=== PATIENT | male | born 1970 | race Caucasian/White ===

== ENCOUNTER 2023-09-17 10:11 | Emergency (ER) | payer BC, SELFPAY ==
[2023-09-17 10:16] VITALS: BP 150/90
[2023-09-17 11:00] LABS: % Basophils 0.7 % (0-2); % Eosinophils 2.1 % (0-6); % Immature Granulocytes 0.7 % (0-0.5); % Lymphocytes 31.2 % (20.5-51.1); % Neutrophils 57.3 % (42.2-75.2); Absolute Eosinophils 0.1 10^3/uL (0-0.7); Absolute Lymphocytes 1.8 10^3/uL (1.2-3.4); Absolute Monocytes 0.5 10^3/uL (0.1-0.6); Absolute Neutrophils 3.3 10^3/uL (1.4-6.5); Hemoglobin 14.6 g/dL (13.0-18.0); Mean Corp Hgb Conc. 32.4 g/dL (33.0-37.0); Mean Corpuscular Hgb 27.8 pg (27.0-31.0); Mean Corpuscular Volume 85.7 fL (80.0-94.0); Mean Platelet Volume 10.4 fL (7.4-10.4); Nucleated Red Blood Cells % 0 % (-); Platelet Count 211 10^3/uL (130-400); Red Blood Cell Count 5.25 10^6/uL (4.70-6.10); Red Cell Dist. Width 13.7 % (11.5-14.5); White Blood Cell Count 5.7 10^3/uL (4.8-10.8)
--- NOTE | 2023-09-17 11:00 | ED.GENMED ---
History of Present Illness
General
Chief Complaint: Fatigue
Time Seen by Provider: 09/17/23 10:27
History of Present Illness
History of Present Illness:
53-year-old male with no significant past medical history presents emergency department for evaluation of general fatigue over the past 2 weeks. He also notes having left-sided chest pain and left arm heaviness randomly over the past 2 days. Feels
as though he cannot get enough sleep. He still remains active throughout the day and has not severely limited by the symptoms. Denies any exertional shortness of breath or chest pain. No chest pain at present. Does note 1 episode of black stool
to days ago, denies any abdominal pain. Not on any blood thinners.
Past History
Past History
ED Past Medical History: None
ED Past Surgical History: None
Review of Systems
Review of Systems
Allergies reviewed?: Yes
All Other Systems: ROS reviewed and negative except as documented in HPI and ROS
Phy Exam
Physical Exam
Physical Exam:
GEN: Well appearing, NAD, WDWN
HEENT: Oral mucosa moist, no scleral icterus
Cardiac: Regular rate and rhythm, no murmurs
Lung: No respiratory distress, no tachypnea, lungs clear to auscultation bilaterally
Abdomen: Soft, nontender
MSK: No gross deformity or injuries
Skin: Good color, no pallor or jaundice, no rashes
Neuro: AO x3, moves all extremities freely
Psych: Calm, cooperative
Course
Orders/Labs/Results
Orders:
Orders
09/17/23 10:15
Electrocardiogram (*1) Urgent
Reason for Study: Other
Other Reason for Exam: chest problem
EKG- Treatment ONCE
09/17/23 10:48
Complete Blood Count/With Diff Urgent
Comprehensive Metabolic Panel Urgent
TSH Urgent
Troponin I Urgent
Abnormal Lab Results
09/17/23
10:48
MCHC 32.4 L g/dL
(33.0-37.0)
Immature Gran % 0.7 H %
(0-0.5)
Glucose 189 H mg/dl
(70-99)
09/17/23 10:48
09/17/23 10:48
Vital Signs
Initial and Last Documented VS:
Initial Vital Signs
Temp Pulse Resp BP Pulse Ox
98.4 F 86 18 150/90 98
09/17/23 10:16 09/17/23 10:16 09/17/23 10:16 09/17/23 10:16 09/17/23 10:16
Last Documented Vital Signs
Temp Pulse Resp BP Pulse Ox
98.4 F 81 19 150/90 94
09/17/23 10:16 09/17/23 11:15 09/17/23 11:15 09/17/23 10:16 09/17/23 11:15
MDM/Problems Addressed
MDM/Problems Addressed:
Patient's initial EKG is, labs are reassuring however blood sugar is noted to be elevated. The patient was not fasting this may be considered normal for him, last A1c was in February at 6.4, recommend outpatient PCP follow-up to obtain repeat A1c
as this could be causing his fatigue. Otherwise he is clinically stable, no clear medical cause for his fatigue at this juncture
*Critical Care Note
Total Time (30-74mins, 75-104mins- exclusive of procedures): Not Applicable
ED Attending Note
-
Portions of this chart may have been created with voice recognition software.� Occasional wrong word or��sound alike� substitutions may have occurred due to the inherent limitations of voice recognition software.
Discharge Plan
Departure
Patient Disposition: Home (Routine Discharge)
Date of Disposition: 09/17/23
Time of Disposition: 11:49
Patient with high blood pressure during this ER visit?: No
Discharge Problem:
Fatigue, Elevated blood sugar
Instructions: Fatigue (DC)
Prescriptions:
No Action
fluoxetine 10 MG capsule
10 mg PO DAILY
aspirin 325 MG tablet,delayed release (DR/EC)
325 mg PO DAILY 0RF
oxycodone 5 MG tablet
5 mg PO Q4HPRN PRN (Reason: moderate pain) Qty: 10 0RF
Referrals:
Hardy English I., DO [Family Provider] -
Activity Restrictions/Additional Instructions:
Have your primary doctor check your A1c level due to your elevated blood sugar in the ER today
Interventions
Interventions:
*Risk Screen - Suicide Last Done: 09/17/23 10:16
*General Assessment Last Done: 09/17/23 10:16
*Neglect/Abuse Screening Last Done: 09/17/23 10:16
*Nursing Disposition Last Done: 09/17/23 12:02
ED- Cardiac Assessment Last Done: 09/17/23 10:36
Discharge Date and Time
Discharge Date/Time: 09/17/23 12:04
Print Language: [place]
[2023-09-17 11:14] LABS: ALT (SGPT) 26 U/L (0-50); AST (SGOT) 25 U/L (17-59); Albumin 4.1 g/dl (3.5-5.0); Alkaline Phosphatase 50 U/L (38-126); Blood Urea Nitrogen 17 mg/dl (9-20); Calcium 8.7 mg/dl (8.4-10.2); Carbon Dioxide 27 mmol/L (22-30); Chloride 102 mmol/L (98-107); Glucose 189 mg/dl (70-99); Potassium 4.1 mmol/L (3.5-5.1); Sodium 137 mmol/L (135-145); Total Bilirubin 0.7 mg/dl (0.2-1.3); Total Protein 6.6 g/dl (6.3-8.2); eGFR > 60.00
[2023-09-17 11:25] LABS: Troponin I < 0.012 ng/ml
[2023-09-17 11:44] LABS: TSH 1.19 uIU/ml (0.47-4.68)
== END 2023-09-17 12:04 | disposition home or self-care (01) ==
LOC: EMR 10:11
PROVIDERS: Physician Assistant; EMERGENCY PHYSICIAN Emergency Medicine; FAMILY PHYSICIAN Internal Medicine
DX: R53.83 Other fatigue (principal); R07.89 Other chest pain; R73.9 Hyperglycemia, unspecified
CPT/HCPCS: 99283; 80053; 84443; 84484; 85025; 93005

== ENCOUNTER → 2023-10-19 09:00 | Outpatient (REF) | payer SELFPAY | LOC: DHSLP 09:00 | PROVIDERS: ATTENDING PHYSICIAN Nurse Practitioner Family | DX: G47.33 Obstructive sleep apnea (adult) (pediatric) (principal) | CPT/HCPCS: 95800 ==

== ENCOUNTER → 2024-03-11 06:10 | Outpatient (REF) | payer BC, SELFPAY ==
[2024-03-11 10:05] LABS: % Basophils 0.7 % (0-2); % Eosinophils 1.9 % (0-6); % Immature Granulocytes 0.4 % (0-0.5); % Lymphocytes 24.1 % (20.5-51.1); % Monocytes 10.9 % (1.7-9.3); Absolute Basophils 0.1 10^3/uL (0-0.2); Absolute Eosinophils 0.1 10^3/uL (0-0.7); Absolute Lymphocytes 1.8 10^3/uL (1.2-3.4); Absolute Monocytes 0.8 10^3/uL (0.1-0.6); Absolute Neutrophils 4.5 10^3/uL (1.4-6.5); Hematocrit 48.2 % (39.0-52.0); Hemoglobin 15.9 g/dL (13.0-18.0); Mean Corpuscular Hgb 28.7 pg (27.0-31.0); Mean Platelet Volume 10.4 fL (7.4-10.4); Nucleated Red Blood Cells % 0 % (-); Platelet Count 271 10^3/uL (130-400); Red Blood Cell Count 5.54 10^6/uL (4.70-6.10); Red Cell Dist. Width 13.1 % (11.5-14.5); White Blood Cell Count 7.3 10^3/uL (4.8-10.8)
[2024-03-11 10:42] LABS: ALT (SGPT) 28 U/L (0-50); AST (SGOT) 19 U/L (17-59); Albumin 4.5 g/dl (3.5-5.0); Alkaline Phosphatase 49 U/L (38-126); Blood Urea Nitrogen 21 mg/dl (9-20); Calcium 9.1 mg/dl (8.4-10.2); Carbon Dioxide 30 mmol/L (22-30); Chloride 102 mmol/L (98-107); Glucose 129 mg/dl (70-99); HDL Cholesterol 43 mg/dl; LDL Cholesterol, Calculated 99 mg/dl; Potassium 4.4 mmol/L (3.5-5.1); Sodium 140 mmol/L (135-145); Total Bilirubin 0.3 mg/dl (0.2-1.3); Total Cholesterol 171 mg/dl (50-199); Triglyceride 145 mg/dl (10-149); Very Low Density Lipoprotein 29 mg/dl (0-30); eGFR > 60.00
[2024-03-11 10:49] LABS: Glycohemoglobin (HgbA1c) 6.2 % (4.0-5.6)
[2024-03-11 11:11] LABS: TSH Reflex To Free T4 3.12 uIU/ml (0.47-4.68)
== END ==
LOC: HWLAB 06:10
PROVIDERS: ATTENDING PHYSICIAN Internal Medicine
DX: Z00.00 Encounter for general adult medical examination without abnormal findings (principal); R73.03 Prediabetes; Z12.5 Encounter for screening for malignant neoplasm of prostate
CPT/HCPCS: 36415; 80053; 80061; 83036; 84443; 85025; G0103

== ENCOUNTER → 2024-03-29 06:47 | Outpatient (REF) | payer BC, SELFPAY | LOC: HWRAD 06:47 | PROVIDERS: ATTENDING PHYSICIAN Internal Medicine | DX: R10.11 Right upper quadrant pain (principal) | CPT/HCPCS: 76700 ==

== ENCOUNTER → 2024-06-16 06:06 | Outpatient (REF) | payer BC, SELFPAY ==
[2024-06-16 10:26] LABS: ALT (SGPT) 28 U/L (0-50); AST (SGOT) 21 U/L (17-59); Albumin 4.2 g/dl (3.5-5.0); Alkaline Phosphatase 54 U/L (38-126); Blood Urea Nitrogen 17 mg/dl (9-20); Calcium 9.2 mg/dl (8.4-10.2); Carbon Dioxide 25 mmol/L (22-30); Chloride 104 mmol/L (98-107); Glucose 138 mg/dl (70-99); Iron 90 ug/dl (49-181); Potassium 4.4 mmol/L (3.5-5.1); Sodium 138 mmol/L (135-145); Total Bilirubin 0.6 mg/dl (0.2-1.3); Total Protein 6.8 g/dl (6.3-8.2); eGFR > 60.00
[2024-06-16 10:35] LABS: Percent Saturation 29 % (20-50); Total Iron Binding Capacity 308 ug/dl (261-462)
[2024-06-16 11:42] LABS: Ferritin 47.4 ng/ml (17.9-464.0)
[2024-06-16 12:07] LABS: IgA 188 mg/dl (70-400); IgG 1018 mg/dl (700-1600); IgM 112 mg/dl (40-230)
[2024-06-16 18:31] LABS: Hepatitis B Surface Antigen Negative (Negative)
[2024-06-16 18:50] LABS: Hepatitis A Antibody, Total Negative (Negative); Hepatitis B Core Ab, Total Negative (Negative); Hepatitis B Surface Antibody Positive; Hepatitis C Antibody Negative (Negative)
[2024-06-16 19:50] LABS: Hepatitis A IgM Antibody Negative (Negative); Hepatitis B Core Ab, IgM Negative (Negative)
[2024-06-17 18:01] LABS: IgG Subclass 1 446 mg/dL (240-1118); IgG Subclass 2 422 mg/dL (124-549); IgG Subclass 3 65 mg/dL (21-134); IgG Subclass 4 22 mg/dL (1-123)
[2024-06-17 19:07] LABS: tTG IgA Antibody <1.02 FLU (0.00-4.99)
[2024-06-17 20:32] LABS: F-Actin Antibody IgG 30 Units (0-19); Mitochondrial M2 Ab, IgG 45.2 Units (0.0-24.9)
[2024-06-17 22:02] LABS: ANA, IgG Reflex to HEp-2 None Detected (None Detected)
[2024-06-17 23:20] LABS: Alpha-1-Antitrypsin 138 mg/dL (90-200); Ceruloplasmin 22 mg/dL (15-30)
[2024-06-18 03:15] LABS: LKM-1 Ab (IgG) 0.8 U (0.0-24.9); Soluble Liver Antigen Ab 1.3 U (0.0-24.9)
== END ==
LOC: HWLAB 06:06
PROVIDERS: ATTENDING PHYSICIAN Student in an Organized Health Care Education/Training Program; FAMILY PHYSICIAN Internal Medicine
DX: K76.0 Fatty (change of) liver, not elsewhere classified (principal)
CPT/HCPCS: 36415; 80053; 82103; 82390; 82728; 82784; 82787; 83516; 83540; 83550; 86015; 86038; 86364; 86376; 86381; 86704; 86705; 86706; 86708; 86709; 86803; 87340

== ENCOUNTER → 2024-07-01 08:03 | Outpatient (REF) | payer BC, SELFPAY | LOC: MRI 08:03 | PROVIDERS: ATTENDING PHYSICIAN Student in an Organized Health Care Education/Training Program; FAMILY PHYSICIAN Internal Medicine | DX: K76.0 Fatty (change of) liver, not elsewhere classified (principal); K86.89 Other specified diseases of pancreas | CPT/HCPCS: 74183; 76391; A9575 ==

== ENCOUNTER 2024-07-13 06:25 | Day surgery (SDC) | payer BC, SELFPAY | END 2024-07-13 11:32 | disposition home or self-care (01) | LOC: GI 06:25 | PROVIDERS: ATTENDING PHYSICIAN Student in an Organized Health Care Education/Training Program | DX: R10.12 Left upper quadrant pain (principal); K31.7 Polyp of stomach and duodenum; K31.89 Other diseases of stomach and duodenum; K31.A0 Gastric intestinal metaplasia, unspecified; K29.50 Unspecified chronic gastritis without bleeding | CPT/HCPCS: 43251; 88305; 88342 ==

== ENCOUNTER → 2025-01-17 06:05 | Outpatient (REF) | payer BC, SELFPAY ==
[2025-01-17 10:45] LABS: Hematocrit 48.2 % (39.0-52.0); Hemoglobin 15.6 g/dL (13.0-18.0); Mean Corp Hgb Conc. 32.4 g/dL (33.0-37.0); Mean Corpuscular Volume 85.3 fL (80.0-94.0); Nucleated Red Blood Cells % 0 % (-); Platelet Count 262 10^3/uL (130-400); Red Cell Dist. Width 13.2 % (11.5-14.5)
[2025-01-17 10:56] LABS: ALT (SGPT) 22 U/L (0-50); AST (SGOT) 18 U/L (17-59); Albumin 4.3 g/dl (3.5-5.0); Alkaline Phosphatase 48 U/L (38-126); Blood Urea Nitrogen 12 mg/dl (9-20); Calcium 9.0 mg/dl (8.4-10.2); Carbon Dioxide 30 mmol/L (22-30); Chloride 106 mmol/L (98-107); Glucose 119 mg/dl (70-99); HDL Cholesterol 42 mg/dl; LDL Cholesterol, Calculated 91 mg/dl; Potassium 5.0 mmol/L (3.5-5.1); Sodium 142 mmol/L (135-145); Total Protein 6.9 g/dl (6.3-8.2); Very Low Density Lipoprotein 21 mg/dl (0-30); eGFR > 60.00
[2025-01-17 11:19] LABS: Glycohemoglobin (HgbA1c) 5.5 % (4.0-5.6)
== END ==
LOC: HWLAB 06:05
PROVIDERS: ATTENDING PHYSICIAN Internal Medicine
DX: R73.9 Hyperglycemia, unspecified (principal)
CPT/HCPCS: 36415; 80053; 80061; 83036; 84443; 85025